=== PATIENT | male | born 1960 ===

== ENCOUNTER → 2019-01-06 | Outpatient (REF) | payer OTHER | LOC: M LAB LCGH 09:29 | PROVIDERS: ATTEND Specialist | DX: M16.12 Unilateral primary osteoarthritis, left hip (principal) ==

== ENCOUNTER → 2019-01-06 | Outpatient (REF) | LOC: M LAB LCGH 14:51 | PROVIDERS: ATTEND Specialist | DX: Q65.89 Other specified congenital deformities of hip (principal) ==